=== PATIENT | male | born 1995 | race African-American/Black ===

== ENCOUNTER 2020-01-19 15:10 | Emergency (ER) | payer SELFPAY ==
[2020-01-19] MEDS ORDERED: IBUPROFEN 600 MG TABLET PO ONE (15:58)
--- NOTE | 2020-01-19 16:31 | RADIOLOGY REPORT (SQ) ---
EXAM DESCRIPTION: FOOT LEFT COMPLETE IMAGES COMPLETED DATE/TIME: 01/19/2020 4:21 pm REASON FOR STUDY: pain COMPARISON: None. NUMBER OF VIEWS: Three views. TECHNIQUE: AP, lateral and oblique without weight bearing radiographic images acquired of the left f oot. LIMITATIONS: None. FINDINGS: MINERALIZATION: Normal. BONES: No acute fracture or dislocation. No worrisome bone lesions. No significant osteophytes. JOINTS: No erosions. No dariel-articular osteopenia. No chondrocalcinosis. SOFT TISSUES: No swelling. No calcifications. OTHER: No other significant finding. IMPRESSION: NEGATIVE STUDY OF THE LEFT FOOT. NO EXPLANATION FOR PAIN. TECHNICAL DOCUMENTATION: JOB ID: [id number] [employer] All Rights Reserved Reading location - IP/workstation name: [email or web address]
--- NOTE | 2020-01-19 16:51 | ER Document Report ---
HPI - HPI Patient complains to provider of: Left foot pain Time Seen by Provider: 01/19/20 15:54 Pain Level: 3 Context: 24-year-old male with no previous medical problems presents emergency room complaining of pain to his left foot under the ball of his foot for the past 2 weeks. Denies any acute trauma or injury. States it is worse when walking especially at work denies any pain when sitting and resting it. Has not been taking any medications for. Denies any numbness or tingling. Associated Symptoms: None Exacerbated by: Walking Relieved by: Remaining still Similar symptoms previously: No Recently seen / treated by doctor: No - ROS ROS below otherwise negative: Yes - CONSTITUTIONAL Constitutional: DENIES: Fever, Chills - MUSCULOSKELETAL Musculoskeletal: REPORTS: Extremity pain - DERM Skin Color: Normal Skin Problems: None Past Medical History - General Information source: Patient - Social History Smoking Status: Never Smoker Frequency of alcohol use: None Drug Abuse: None Family History: Reviewed & Not Pertinent Patient has homicidal ideation: No - Immunizations Immunizations up to date: Yes Vertical Provider Document - CONSTITUTIONAL Agree With Documented VS: Yes Exam Limitations: No Limitations General Appearance: Mild Distress - INFECTION CONTROL TRAVEL OUTSIDE OF THE [place] IN LAST 30 DAYS: No - HEENT HEENT: Atraumatic, Normocephalic - NECK Neck: Normal Inspection, Supple - RESPIRATORY Respiratory: Breath Sounds Normal, No Respiratory Distress, Chest Non-Tender. negative: Rales, Rhonchi, Wheezing - CARDIOVASCULAR Cardiovascular: Regular Rate, Regular Rhythm, No Murmur - BACK Back: Normal Inspection - MUSCULOSKELETAL/EXTREMETIES Musculoskeletal/Extremeties: FROM, Tender - There is tenderness on palpation to the ball of the left foot. There is no swelling, there is no deformity, is not erythematous. Full range of motion to ankle without difficulty. - NEURO Level of Consciousness: Awake, Alert, Appropriate Motor/Sensory: No Motor Deficit, No Sensory Deficit Notes: Positive left pedal pulse. Capillary refill less than 3 seconds. - DERM Integumentary: Warm, Dry, No Rash Course - Re-evaluation Re-evalutation: 01/19/20 16:51 Patient is resting comfortably decreased pain. He is ambulatory with a steady gait. Neurovascular intact. Reviewed x-ray results with patient. Counseled to take Tylenol and Motrin as needed for pain. Outpatient follow-up with orthopedics if not improving in 2 to 3 days. Patient was given strict return to the emergency room guidelines. Return for any new or worsening symptoms. All questions were answered. Patient verbalized understanding and agrees with plan of care. 01/19/20 16:53 - Vital Signs Vital signs: Temp Pulse Resp BP Pulse Ox 98.4 F 79 14 122/68 97 01/19/20 15:55 01/19/20 15:13 01/19/20 15:13 01/19/20 15:13 01/19/20 15:13 - Diagnostic Test Radiology reviewed: Reports reviewed Discharge - Discharge Clinical Impression: Left foot pain Condition: Stable Disposition: HOME, SELF-CARE Instructions: Exercises for the Foot Muscles ([facility]) Additional Instructions: Tylenol and/or Motrin as needed for pain. Follow-up with orthopedics if not improving in 2 to 3 days. Return for any new or worsening symptoms. Forms: Return to Work Referrals: KRISTOPHER RAYO MD [ACTIVE PROVISIONAL STAFF] - Follow up as needed
[2020-01-19 17:02] VITALS: BP 120/64
== END 2020-01-19 17:08 | disposition home or self-care (01) ==
LOC: ER 15:10
DX: M79.672 Pain in left foot (principal)
CPT/HCPCS: 99283